=== PATIENT | female | born 1960 | race Caucasian/White ===

== ENCOUNTER 2017-03-25 06:56 | Inpatient (IN) | payer OTHER ==
[2017-02-28 12:00] VITALS: BMI 52.0
--- NOTE | 2017-02-28 12:23 | PAT Medication Instructions ---
Service Date Feb 28, 2017. Current Home Medication List Albuterol Hfa (Ventolin Hfa), 2-4 PUFFS INH Q6H PRN for Shortness of Breath Levothyroxine Sodium (Levothyroxine Sodium), 1 TAB PO QAM Medication Instructions For Your Scheduled Surgery - Take the following medications the morning of surgery with a sip of water: Albuterol Hfa (Ventolin Hfa), 2-4 PUFFS INH Q6H PRN for Shortness of Breath ( use if needed; bring with you to hospital morning of surgery) Levothyroxine Sodium (Levothyroxine Sodium), 1 TAB PO QAM - Take the following medications as scheduled the night before surgery: Albuterol Hfa (Ventolin Hfa), 2-4 PUFFS INH Q6H PRN for Shortness of Breath (if needed) If you have any questions please call us at [phone] or [phone] or [phone]
[2017-02-28 12:59] LABS: BASO % 0.5 %; BASO ABS # 0.03 K/uL (0-0.2); COMPLETE YES; EOS % 2.3 %; HEMATOCRIT 42.3 % (37-47); IG% 0.2 %; LYMPH % 27.9 %; MEAN CELL VOLUME 88.3 fL (80-100); MEAN CORPUSCULAR HGB CONC 32.9 g/dl (32-36); MEAN PLATELET VOLUME 10.6 fL (7.4-10.4); MONO % 6.1 %; PLATELET COUNT 238 K/uL (130-400); RED BLOOD COUNT 4.79 M/uL (4.2-5.4); WHITE BLOOD COUNT 5.74 K/uL (4.8-10.8)
--- NOTE | 2017-02-28 13:19 | DIAGNOSTIC IMAGING REPORT ---
CHEST 2 VIEWS ROUTINE CLINICAL HISTORY: pat preoperative evaluation COMPARISON STUDY: No previous studies for comparison. FINDINGS: The bones soft tissues and hemidiaphragms are normal. The cardiomediastinal silhouette is normal. The lungs are clear. The pulmonary vasculature is normal. Possible left millimeter nodular density left lower lobe. IMPRESSION: Possible nodular density measuring 11 mm left lower lobe. CT of chest is recommended as follow-up. Electronically signed by: Abbe Knight M.D. 02/28/2017 1:18 PM Dictated Date/Time: 02/28/2017 1:07 PM
[2017-02-28 13:20] LABS: ESTIMATED AVERAGE GLUCOSE 126 mg/dl; HA1C FLAG Normal (Normal)
[2017-02-28 13:23] LABS: URINE APPEARANCE CLEAR (CLEAR); URINE BILIRUBIN NEG (NEG); URINE COLOR YELLOW; URINE NITRITE NEG (NEG); URINE PH 6.5 (4.5-7.5); URINE SPECIFIC GRAVITY 1.013 (1.000-1.030); UROBILINOGEN NEG (NEG)
[2017-02-28 13:28] LABS: INR 0.9 (0.9-1.1); PARTIAL THROMBOPLASTIN RATIO 1.1; PROTHROMBIN TIME (PATIENT) 10.1 SECONDS (9.0-12.0)
[2017-02-28 13:29] LABS: MANUAL MICROSCOPIC REQUIRED? NO; REVIEW REQ? NO
[2017-02-28 14:19] LABS: BUN/CREATININE RATIO 24.7 (10-20); CREATININE 0.74 mg/dl (0.60-1.20); POTASSIUM 4.2 mmol/L (3.5-5.1)
--- NOTE | 2017-03-14 11:11 | History and Physical ---
History & Physical Date Mar 14, 2017. Chief Complaint Right knee Pain History of Present Illness The patient is a 56 year old female with complaints of right knee pain. She states there was no known injury. The symptoms occur constantly. She describes them as aching, discomforting and sharp. She has tried injections, ibuprofen and PT without any relief. She is scheduled for a Right Total knee Arthroplasty. Past Medical/Surgical History PMHx: Asthma, hypothyroidism, osteoarthritis, obesity Surgical Hx: Right knee arthroscopy, cholecystectomy, x2, hysterectomy , appendectomy, tonsillectomy. Additional History Hepatic Disease: No Endocrine Disorder: Yes (Hypothryoidism) Kidney Disease: No Hypertension: No Heart Disease: No Bleeding Tendencies: No Infectious Diseases: No Allergies Coded Allergies: Adhesives (Verified Allergy, Mild, RED AND SORE, 02/28/17) NO KNOWN DRUG ALLERGIES (Verified Allergy, Mild, ., 02/28/17) Home Medications Scheduled Levothyroxine Sodium (Levothyroxine Sodium), 1 TAB PO QAM Scheduled PRN Albuterol Hfa (Ventolin Hfa), 2-4 PUFFS INH Q6H PRN for Shortness of Breath Physical Examination Skin: warm/dry, no rash Eyes: EOMI ENT: normal ENT inspection Head: normocephalic, atraumatic Neck: supple, no adenopathy Respiratory/Chest: lungs clear, normal breath sounds Cardiovascular: regular rate, rhythm, no murmur Abdomen / GI: normal bowel sounds, non tender Extremities: + pertinent finding (Medial joint line tenderness. Decreased AROM. Ligaments are intact. ) Neurologic/Psych: no motor/sensory deficits, alert, oriented x 3 Diagnosis Primary osteoarthritis of Right knee Plan of Treatment Patient is scheduled for a Right total knee arthroplasty. She has failed conservative therapy that include NSAIDs, cortisone injections and PT. She states that it affects her ADLs. She would like to proceed with a Right TKA. Patient is scheduled for a Right TKA. Risks and benefits to surgery were discussed with the patient that include but not limit to infection, DVT, pain, stiffness, need for revision surgery, damage to blood vessels, damage to nerves , PE, and anesthesia risks were all discussed. The patient understands these risks and wishes to proceed. All questions were answered to her satisfaction. DVT prophylaxis will be Aspirin 81mg BID. She would like to go home with OPPT after her surgery.
[2017-03-25] VITALS (8 sets, daily range): BP systolic 119–135; BP diastolic 80–93; PULSE 57–79; TEMP 36.4–36.8; O2SAT 94–98; Ht 152.4 cm; Wt 121.0 kg
[~2017-03-25] VITALS: Ht 152.4 cm; Wt 121.0 kg
[~2017-03-25 06:56] MED LIST: ACETAMINOPHEN 500 MG TAB PO SCH; CEFAZOLIN 2000 MG/60 ML D5W 60 ML IV SCH; CEFAZOLIN 3000 MG/65 ML D5W 65 ML IV SCH; CeleBREX 200 MG CAP PO SCH; FAMOTIDINE 20 MG TAB PO SCH; GABAPENTIN 300 MG CAP PO SCH; LACTATED RINGER'S 1000ML IV SCH; LACTATED RINGER'S 500 ML IV SCH; LEVO150T9 PO; METOCLOPRAMIDE HCL 10 MG TAB PO SCH; ROPIVACAINE 5MG/ML 30 ML 150 MG, BUPIVACAINE/EPINEPHR 0.5% MPF 30 ML, KETOROLAC TROMETH... INFIL SCH; VNTHFA/IN INH
[2017-03-25] MEDS ORDERED: BUPIVACAINE 0.25% 30 ML VIAL ONE (07:47)
[2017-03-25] MEDS ORDERED: BUPIVACAINE 0.5 % 5 MG/1 ML PF 10ML VIAL ONE (07:47)
[2017-03-25] MEDS ORDERED: FENTANYL CITRATE INJ 50 MCG/1 ML 2 ML VIAL ONE (08:15)
[2017-03-25] MEDS ORDERED: LIDOCAINE HCL 2% 2 ML VIAL (20MG/ML) ONE (08:15)
[2017-03-25] MEDS ORDERED: PROPOFOL IV EMULSION 10 MG/ML 20 ML VIAL IV ONE (08:15)
[2017-03-25] MEDS ORDERED: MIDAZOLAM HCL 1 MG/ML 2ML VIAL ONE (08:15)
--- NOTE | 2017-03-25 08:37 | History & Physical Bridge Note ---
H&P Re-Evaluation Bridge Note: I have examined the patient, reviewed the History & Physical and in the interval since the performance of the History & Physical I have noted the following changes of clinical significance: No changes noted
[2017-03-25] MEDS ORDERED: NURSING VERBAL MED ORDER ONE (08:45)
[2017-03-25] MEDS ORDERED: ORTHO JOINT ANESTHETIC ONE (09:07)
[2017-03-25] MEDS ORDERED: POVIDONE-IODINE OP SOLN 30 ML BTL ONE (09:07)
[2017-03-25] MEDS ORDERED: BACITRACIN 50000 UNIT VIAL ONE (09:07)
[2017-03-25] MEDS: TRANEXAMIC ACID AMP 1,000 MG in NSS 100ML IV SCH ×2 (09:15→09:16)
[2017-03-25] MEDS ORDERED: KETOROLAC TROMETHAMINE 30 MG/ML VIAL IV. PRN (10:45)
[2017-03-25] MEDS ORDERED: ATROPINE SULFATE 0.1 MG/ML 5ML SYR IV PRN (10:45)
[2017-03-25] MEDS ORDERED: ONDANSETRON INJ 2 MG/ML 2 ML VIAL IV PRN ×2 (10:45→12:15)
[2017-03-25] MEDS ORDERED: EpHEDrine SULFATE INJ 50 MG/ML AMP IV PRN (10:45)
[2017-03-25] MEDS ORDERED: HYDROmorphone INJ 1 MG/ML SYR IV PRN (10:45)
[2017-03-25] MEDS ORDERED: PHENYLEPHRINE 100MCG/ML 5ML SYR IV PRN (10:45)
--- NOTE | 2017-03-25 12:14 | [facility] Post Operative Brief Note ---
Immediate Operative Summary Operative Date Mar 25, 2017. Pre-Operative Diagnosis Primary Osteoarthritis of Right Knee Post-Operative Diagnosis Primary Osteoarthritis of Right Knee Procedure(s) Performed Right Total Knee Arthroplasty, Cemented Surgeon Dr. Taylor Asset Management Analyst Surgeon(s) Kenia Teague PA-C Estimated Blood Loss 50 mL Findings above Specimens A: Right Knee Bone and Tissue Drains 2 hemovac Anesthesia spinal Complication(s) None Disposition Recovery Room / PACU
[2017-03-25] MEDS ORDERED: DiphenhydrAMINE HCL 50 MG/ML VIAL IV PRN (12:15)
[2017-03-25] MEDS ORDERED: METOCLOPRAMIDE HCL INJ 5 MG/ML 2 ML VIAL IV PRN (12:15)
[2017-03-25] MEDS ORDERED: MAGNESIUM HYDROXIDE SUSP 30 ML UDC PO PRN (12:15)
[2017-03-25] MEDS ORDERED: HYDROCODONE/ACETAMOPHEN 5/325MG TAB PO PRN (12:15)
[2017-03-25] MEDS ORDERED: MoRPHine SULFATE 2 MG/ML CARP IV PRN (12:15)
[2017-03-25] MEDS ORDERED: ZOLPIDEM TARTRATE 5 MG TAB PO PRN (12:15)
[2017-03-25] MEDS ORDERED: ALBUTEROL HFA 8 GM INHALER INH PRN (12:15)
--- NOTE | 2017-03-25 13:03 | DIAGNOSTIC IMAGING REPORT ---
RIGHT KNEE 1 OR 2 VIEWS ROUTINE CLINICAL HISTORY: Postoperative evaluation. COMPARISON: None FINDINGS: Alignment of the total right knee arthroplasty is anatomic. There is no periprosthetic fracture or unexpected radiopaque foreign body. Drains and skin amita are present. IMPRESSION: Expected findings following total right knee arthroplasty. Electronically signed by: Doug Lynne M.D. 03/25/2017 1:02 PM Dictated Date/Time: 03/25/2017 12:58 PM
--- NOTE | 2017-03-25 13:07 | Anesthesiology Progress Note ---
Anesthesia Post Op Note Date & Time Mar 25, 2017 at 13:07 Vital Signs Pain Intensity: 0 Vital Signs Past 12 Hours Date Time Temp Pulse Resp B/P (MAP) Pulse Ox O2 Delivery O2 Flow Rate FiO2 03/25/17 13:00 60 14 121/73 98 Nasal Cannula 2 03/25/17 12:50 63 16 116/70 97 Oxymask 5 03/25/17 12:40 74 18 108/65 97 Oxymask 5 03/25/17 12:34 36.2 74 16 109/56 97 Oxymask 10 03/25/17 07:30 36.8 79 20 135/93 98 Room Air Notes Mental Status: alert / awake / arousable, participated in evaluation Pt Amnestic to Procedure: Yes Nausea / Vomiting: adequately controlled Pain: adequately controlled Airway Patency, RR, SpO2: stable & adequate BP & HR: stable & adequate Hydration State: stable & adequate Anesthetic Complications: no major complications apparent
[2017-03-25] MEDS: D5W AND 1/2NSS + 20MEQ KCL 1,000 ML IV SCH (15:44)
[2017-03-25] MEDS: ACETAMINOPHEN 500 MG TAB PO SCH ×2 (15:44→21:38)
--- NOTE | 2017-03-25 16:03 | [facility] Operative Report ---
Operative Report Operative Date Mar 25, 2017. Pre-Operative Diagnosis Primary Osteoarthritis of Right Knee Post-Operative Diagnosis Primary Osteoarthritis of Right Knee Procedure(s) Performed Right Total Knee Arthroplasty, Cemented Surgeon Dr. Taylor Tip Stretcher Surgeon(s) Kenia Teague PA-C Estimated Blood Loss 50 mL Findings As above Specimens A: Right Knee Bone and Tissue Drains 2 hemovac Anesthesia spinal Disposition Recovery Room / PACU Indications 56-year-old female with [id number] osteoarthritis of the right knee. She has failed conservative measures including injection and anti-inflammatories. She wishes to proceed with a total knee arthroplasty. Description of Procedure Risks benefits and alternatives of surgery including but not limited to infection DVT pain stiffness need for surgery damage to blood vessels damage to nerves or risks of anesthesia were discussed with the patient and she wished to proceed. Patient was identified in the laterality was confirmed and marked. She received a preoperative antibiotic is also a spinal anesthetic and a abductor canal block. A well-padded tourniquet was applied and then the limb was prepped and draped in standard manner with ChloraPrep. The limb was exsanguinated and the tourniquet was inflated. I made a standard anterior incision. I sharply incised the skin then utilized Bovie electrocautery as well as the aqua mantis to achieve hemostasis. I made a medial parapatellar arthrotomy immobilized the patella laterally. I then excised the anterior horns of the medial and lateral meniscus as well as the infrapatellar fat pad. I elevated a portion of the MCL off of the tibia. I then pinned into place a patient-matched distal femoral cutting guide and made my distal femoral resection. I then pinned into place a size 5 5 in 1 cutting guide. I made my anterior, posterior and chamfer cuts. I then excised the cruciates and the remaining portions of the menisci. I then pinned into place a patient- matched tibial cutting guide and made my tibial resection. I then pinned into place a size 3 tibia utilizing alignment rods to confirm rotation. I then cut for the post. Utilizing a lamina employee service officer and then removed posterior osteophytes off the femur. I then placed a trial femur into position and cut for the trochlear component. She had significant soft tissue balancing. She significant valgus preoperative deformity. I released lateral structures including the iliotibial band and the popliteus tendon to try to appropriately rebalance the knee. She still had significant laxity on the medial side as compared to the lateral side. I was unsatisfied with her medial stability as she had been stretched in this region given her deformity with a standard polyethylene selected to place a constrained liner. This was a size 13 constrained liner. There was good soft tissue balancing and range of motion with this polyethylene. I then prepared the patella with a freehand cut utilizing sagittal saw. I sized and drilled for a size 29 patella. There was good tracking to the patella no lateral release was needed. All the trial components were removed. The deep tissues were anesthetized with and ortho mix solution. Then with Simplex HV with gent cement I cemented my definitive components. Definitive components, [employer] Journey 2: Femur 5 Tibia 3 Poly 13 constrained Patella 29 oval A deep drain was placed. The arthrotomy was closed with interrupted #1 Vicryl suture subcutaneous tissue was closed with interrupted 2-0 Vicryl suture and skin with amita. Sterile dressings applied and the tourniquet was released. All needle and sponge counts were correct at the end of the procedure patient was transferred to the PACU in stable condition without apparent complication. I attest to the content of the Intraoperative Record and any orders documented therein. Any exceptions are noted below. I attest to the content of the Intraoperative Record and any orders documented therein. Any exceptions are noted below.
[2017-03-25] MEDS: KETOROLAC TROMETHAMINE 30 MG/ML VIAL IV. SCH (17:40)
[2017-03-25] MEDS: CEFAZOLIN IV 3,000 MG in DEXTROSE 5% 50ML 50 ML IV SCH (17:41)
[2017-03-25] MEDS: FERROUS GLUCONATE 324 MG TAB PO SCH (17:41)
[2017-03-25] MEDS: TAPENTADOL ER 50 MG TABCR PO SCH (21:37)
[2017-03-25] MEDS: ASPIRIN 81 MG ECTAB PO SCH (21:37)
[2017-03-25] MEDS: DOCUSATE SODIUM 100 MG CAP PO SCH (21:38)
[2017-03-26] MEDS: D5W AND 1/2NSS + 20MEQ KCL 1,000 ML IV SCH ×2 (00:40→08:42)
[2017-03-26] MEDS: KETOROLAC TROMETHAMINE 30 MG/ML VIAL IV. SCH ×3 (00:41→12:03)
[2017-03-26] MEDS: CEFAZOLIN IV 3,000 MG in DEXTROSE 5% 50ML 50 ML IV SCH (02:13)
[2017-03-26 05:52] LABS: HEMATOCRIT 36.9 % (37-47); MEAN CELL VOLUME 87.6 fL (80-100); MEAN CORPUSCULAR HEMOGLOBIN 28.5 pg (25-34); MEAN CORPUSCULAR HGB CONC 32.5 g/dl (32-36); MEAN PLATELET VOLUME 10.2 fL (7.4-10.4); PLATELET COUNT 207 K/uL (130-400); RED BLOOD COUNT 4.21 M/uL (4.2-5.4); WHITE BLOOD COUNT 12.09 K/uL (4.8-10.8)
[2017-03-26] MEDS: LEVOTHYROXINE 150 MCG TAB PO SCH (06:01)
[2017-03-26 06:31] LABS: CALCIUM 8.2 mg/dl (8.5-10.1); CREATININE 0.74 mg/dl (0.60-1.20); POTASSIUM 4.3 mmol/L (3.5-5.1)
[2017-03-26 06:51] VITALS: BP 115/75; PULSE 64; TEMP 36.4; O2SAT 99
[2017-03-26] MEDS ORDERED: DEXAMETHASONE 4 MG TAB PO SCH (07:30)
--- NOTE | 2017-03-26 08:33 | Orthopedic Progress Note ---
Orthopedic Progress Note Date of Service Mar 26, 2017. Subjective Post OP Day: 1 Reports: feeling well, Denies: chest pain, SOB, nausea / vomiting, light headedness, calf pain Additional Notes: ITCHING/NAUSEA WITH NORCO. ALSO ALLERGIC TO OXYCODONE, SIMILAR REACTION. Objective calves soft nontender, N/V intact, dressing C/D/I, A&O x3, toes mobile, hemovac drainage (150/150cc per shift) Date Time Temp Pulse Resp B/P (MAP) Pulse Ox O2 Delivery O2 Flow Rate FiO2 03/26/17 06:51 36.4 64 17 115/75 (88) 99 Room Air 03/26/17 00:15 Room Air 03/25/17 23:07 36.6 67 17 130/83 (99) 94 Room Air 03/25/17 20:44 36.5 70 17 135/85 (102) 96 Room Air 03/25/17 16:49 36.4 57 17 130/84 (99) 97 Nasal Cannula 2.0 03/25/17 15:30 Nasal Cannula 2.0 03/25/17 15:28 59 14 128/83 (98) 98 Nasal Cannula 2.0 03/25/17 14:34 57 20 132/80 (97) 96 Nasal Cannula 2.0 03/25/17 14:25 Nasal Cannula 2.0 03/25/17 14:17 36.4 69 14 119/81 (94) 97 Nasal Cannula 2.0 03/25/17 14:16 97 Nasal Cannula 2.0 03/25/17 14:01 61 19 127/80 (96) 97 Nasal Cannula 2.0 03/25/17 13:15 57 16 131/76 98 Nasal Cannula 2 03/25/17 13:00 36.3 60 14 121/73 98 Nasal Cannula 2 03/25/17 12:50 63 16 116/70 97 Oxymask 5 03/25/17 12:40 74 18 108/65 97 Oxymask 5 03/25/17 12:34 36.2 74 16 109/56 97 Oxymask 10 Laboratory Results 24 Hours: Test 03/26/17 05:21 Hematocrit 36.9 % Hemoglobin 12.0 g/dL Assessment & Plan Assessment: POD#1 SP RIGHT TKA MORBID OBESITY Plan: GOING TO HOLD NORCO FOR NOW. MAY CONTINUE TYLENOL AND WILL ADD NUCYNTA. Patient seen and examined, agree with above. Inhouse Planning Pain Management: Celebrex, [place], PO Tylenol DVT Prophylaxis: TEDs, SCDs, ASA Discharge Planning Discharge Planning: home with oppt
[2017-03-26] MEDS: FERROUS GLUCONATE 324 MG TAB PO SCH ×3 (08:40→17:45)
[2017-03-26] MEDS: ASPIRIN 81 MG ECTAB PO SCH ×2 (08:41→20:30)
[2017-03-26] MEDS: DOCUSATE SODIUM 100 MG CAP PO SCH ×2 (08:41→20:30)
[2017-03-26] MEDS: MULTIVITAMIN TAB PO SCH (08:41)
[2017-03-26] MEDS: TAPENTADOL ER 50 MG TABCR PO SCH ×2 (08:41→20:34)
[2017-03-26] MEDS: PANTOprazole SOD 40 MG TAB PO SCH (08:41)
[2017-03-26] MEDS ORDERED: NURSING VERBAL MED ORDER ONE (11:00)
[2017-03-26 12:01] VITALS: BP 115/73; PULSE 64; O2SAT 98
[2017-03-26] MEDS: ALUMINUM/MAGNESIUM/SIMETH (MAALOX MAX) 30 ML UDC PO PRN ×2 (12:08→20:04)
[2017-03-26] MEDS: ACETAMINOPHEN 500 MG TAB PO SCH ×2 (14:59→20:31)
[2017-03-26 15:19] VITALS: BP 128/83; PULSE 73; TEMP 36.7; O2SAT 96
[2017-03-26] MEDS: TAPENTADOL HCL 50 MG TAB PO PRN (18:42)
[2017-03-26] MEDS: CeleBREX 200 MG CAP PO SCH (20:30)
[2017-03-26 23:19] VITALS: BP 114/74; PULSE 78; TEMP 36.5; O2SAT 98
[2017-03-27] VITALS: O2SAT 98
[2017-03-27] MEDS ORDERED: TAPENTADOL HCL 50 MG TAB PO SCH
[2017-03-27] MEDS ORDERED: TAPENTADOL ER 50 MG TABCR PO SCH
[2017-03-27] MEDS: TAPENTADOL HCL 50 MG TAB PO PRN ×2 (00:25→12:04)
[2017-03-27] MEDS: ACETAMINOPHEN 500 MG TAB PO SCH ×2 (05:38→13:24)
[2017-03-27] MEDS: LEVOTHYROXINE 150 MCG TAB PO SCH (05:38)
[2017-03-27 06:40] VITALS: BP 112/75; PULSE 69; TEMP 36.7; O2SAT 97
[2017-03-27] MEDS: ALUMINUM/MAGNESIUM/SIMETH (MAALOX MAX) 30 ML UDC PO PRN (06:42)
[2017-03-27] MEDS: FERROUS GLUCONATE 324 MG TAB PO SCH ×2 (07:28→12:06)
[2017-03-27] MEDS: DOCUSATE SODIUM 100 MG CAP PO SCH (07:28)
[2017-03-27] MEDS: PANTOprazole SOD 40 MG TAB PO SCH (07:28)
[2017-03-27] MEDS: TAPENTADOL ER 50 MG TABCR PO SCH (07:28)
[2017-03-27] MEDS: CeleBREX 200 MG CAP PO SCH (07:29)
[2017-03-27] MEDS: ASPIRIN 81 MG ECTAB PO SCH (07:29)
[2017-03-27] MEDS: MULTIVITAMIN TAB PO SCH (07:29)
--- NOTE | 2017-03-27 08:36 | Orthopedic Progress Note ---
Orthopedic Progress Note Date of Service Mar 27, 2017. Subjective Post OP Day: 2 Reports: feeling well, Denies: chest pain, SOB, nausea / vomiting, light headedness, calf pain Additional Notes: SEEMS BETTER TODAY. LESS PAIN, LESS NAUSEA. AMBULATING IN THE HALLWAY. Objective calves soft nontender, N/V intact, dressing C/D/I (PREVENA), A&O x3, toes mobile Date Time Temp Pulse Resp B/P (MAP) Pulse Ox O2 Delivery O2 Flow Rate FiO2 03/27/17 07:20 Room Air 03/27/17 06:40 36.7 69 16 112/75 (87) 97 Room Air 03/27/17 00:00 98 Room Air 03/26/17 23:19 36.5 78 16 114/74 (87) 98 Room Air 03/26/17 15:25 Room Air 03/26/17 15:19 36.7 73 17 128/83 (98) 96 Room Air 03/26/17 12:01 64 18 115/73 (87) 98 Room Air 03/26/17 08:59 Room Air Assessment & Plan Assessment: POD#2 SP RIGHT TKA MORBID OBESITY Inhouse Planning Pain Management: Celebrex, [place], PO Tylenol DVT Prophylaxis: TEDs, SCDs, ASA Discharge Planning Discharge Planning: home with oppt (DC HOME TODAY) Discharge Planning Notes: Patient seen and examined, agree with above
--- NOTE | 2017-03-27 08:37 | Discharge Instructions ---
Discharge Instructions Date of Service Mar 27, 2017. Admission Reason for Admission: Right Knee Osteoarthritis Discharge Discharge Diagnosis / Problem: SP RIGHT TKA Discharge Goals Goal(s): Decrease discomfort, Improve function, Increase independence Activity Recommendations Activity Limitations: per Instructions/Follow-up section . Instructions / Follow-Up Instructions / Follow-Up ACTIVITY RECOMMENDATIONS: SELF CARE INSTRUCTIONS AFTER TOTAL KNEE REPLACEMENT A. You may need to continue a physical therapy program after discharge from the hospital. There are several options available to you. Your doctor will assist you in selecting the best one for you. 1. An out-patient facility 2 to 3 times a week for therapy or home therapy. 2. Continue working on all exercises taught to you in the hospital. Your goals should be to increase bending of your knee to 90 degrees and beyond and to fully straighten your knee. B. You may progress at your own pace from walking with a walker or crutches to a cane; then to no assistive devices. C. Make walking a part of your daily routine. Be up as much as comfortable with rest periods throughout the day. Rest with leg elevation is very important. Use the ice wrap frequently for the first 3-4 weeks. D. There are no restrictions on activities. You may ride in a car, shop, participate in wild oyster harvester and all social activities. E. Wear the long elastic stockings (NEELIMA hose) 20 hours a day for 2 weeks after surgery. They can be removed several times a day for laundering and for a bath. F. You may shower, no tub baths until cleared by your doctor. SPECIAL CARE INSTRUCTIONS: VERY IMPORTANT TO READ AND REVIEW A. There are a few signs you need to watch for after you are home. Call [facility] if you notice any of the followin. Increased severe knee pain. Some pain is expected especially when you exercise. 2. Increased swelling in your leg or knee; pain or swelling of the calf muscle in either lower leg. 3. Any fluid drainage from the incision. 4. Shortness of breath or chest pain. B. Please call [facility] at if you have any concerns or questions about your operation or recovery. The doctor or his nurse will return your call promptly. C. You must take antibiotics before dental work, bladder, bowel or other surgery. Your doctor will provide you with a permanent care to carry describing this precaution. IMPORTANT: * REMEMBER TO TAKE ASPIRIN, 81 MG, TWICE DAILY FOR 4 WEEKS UNLESS OTHERWISE DIRECTED. THIS IS YOUR BLOOD THINNER. * HIGH RISK PATIENTS MAY BE PRESCRIBED A STRONGER BLOOD THINNER. THIS WILL BE PROVIDED AT DISCHARGE. * CALL IF INCREASED PAIN, REDNESS, DRAINAGE OR FEVER GREATER THAT 101. * WEAR NEELIMA HOSE 20 HOURS PER DAY FOR 2 WEEKS. Prevena- This is a large suction dressing covering your incision. This will help pull any excess drainage from the wound and allow your incision to heal properly. You may shower with this if you can keep the unit outside of the shower. If any bleeding or leakage is noted please call your doctor's office. This will remain on your incision for 7 days and then should be removed. This can be done yourself or by the home nursing staff if applicable. The entire unit is disposable once removed. Once removed, keep incision clean and dry. If redness or drainage is noted, please call your surgeon. FOLLOW UP VISIT: If appointment is not already scheduled: Please call [facility] to make a follow-up appointment for 2 weeks after your surgery at . Current Hospital Diet Patient's current hospital diet: Regular Diet Discharge Diet Recommended Diet: Regular Diet Procedures Procedures Performed: Right Total Knee Arthroplasty, Cemented Pending Studies Studies pending at discharge: no Laboratory Results Hemoglobin A1c Test 02/28/17 12:30 Range/Units Estimated Average Glucose 126 mg/dl Hemoglobin A1c 6.0 H 4.5-5.6 % Medical Emergencies . Who to Call and When: Medical Emergencies: If at any time you feel your situation is an emergency, please call 911 immediately. . Non-Emergent Contact Non-Emergency issues call your: Surgeon . "Provider Documentation" section prepared by Kenia Teague. . VTE Core Measure Inpt VTE Proph given/why not?: Other Anticoagulation, T.E.D. Stockings, SCD's
[2017-03-27] MEDS ORDERED: NCYSR50 PO (08:39)
[2017-03-27] MEDS ORDERED: NCY50 PO (08:39)
[2017-03-27] MEDS ORDERED: ACET-24 PO (08:39)
[2017-03-27] MEDS ORDERED: CLB200 PO (08:39)
[2017-03-27] MEDS ORDERED: ONDA8TAB6 PO (08:39)
[2017-03-27] MEDS ORDERED: ASPEC81 PO (08:39)
[2017-03-27 12:42] VITALS: BP 112/75; PULSE 69; TEMP 36.7; O2SAT 97
[2017-03-27] MEDS ORDERED: NURSING VERBAL MED ORDER ONE (13:30)
== END 2017-03-27 14:28 | disposition home or self-care (01) | DRG 470 ==
LOC: C.ACU 06:56 → C.3E 12:21 → ENRESERV 13:16
PROVIDERS: ADMIT Orthopaedic Surgery; ATTEND Orthopaedic Surgery
PROC: 0SRC0J9 Replacement of Right Knee Joint with Synthetic Substitute, Cemented, Open Approach (ICD-10-PCS; principal; 2017-03-25 10:00)
DX: M17.11 Unilateral primary osteoarthritis, right knee (principal); Z68.43 Body mass index [BMI] 50.0-59.9, adult; E03.9 Hypothyroidism, unspecified; E66.01 Morbid (severe) obesity due to excess calories; J45.909 Unspecified asthma, uncomplicated; Z79.899 Other long term (current) drug therapy

== ENCOUNTER 2017-06-24 06:31 | Inpatient (IN) | payer OTHER ==
[2017-06-06 11:27] VITALS: BMI 43.0
--- NOTE | 2017-06-06 12:05 | PAT Medication Instructions ---
Service Date Jun 06, 2017. Current Home Medication List Albuterol Hfa (Ventolin Hfa), 2-4 PUFFS INH Q6H PRN for Shortness of Breath Levothyroxine Sodium (Levothyroxine Sodium), 1 TAB PO QAM Medication Instructions For Your Scheduled Surgery - Take the following medications the morning of surgery with a sip of water: Albuterol Hfa (Ventolin Hfa), 2-4 PUFFS INH Q6H PRN for Shortness of Breath (if needed, and BRING WITH YOU THE MORNING OF THE SURGERY) Levothyroxine Sodium (Levothyroxine Sodium), 1 TAB PO QAM - Take the following medications as scheduled the night before surgery: Albuterol Hfa (Ventolin Hfa), 2-4 PUFFS INH Q6H PRN for Shortness of Breath (IF NEEDED) If you have any questions please call us at [phone] or [phone] or [phone]
[2017-06-06 13:20] LABS: BASO % 0.3 %; BASO ABS # 0.02 K/uL (0-0.2); COMPLETE YES; EOS % 2.2 %; LYMPH % 24.1 %; LYMPH ABS # 1.54 K/uL (1.2-3.4); MEAN CELL VOLUME 87.7 fL (80-100); MEAN CORPUSCULAR HEMOGLOBIN 28.6 pg (25-34); MEAN CORPUSCULAR HGB CONC 32.6 g/dl (32-36); MEAN PLATELET VOLUME 10.4 fL (7.4-10.4); NEUT % 65.4 %; PLATELET COUNT 240 K/uL (130-400); RED BLOOD COUNT 4.79 M/uL (4.2-5.4)
[2017-06-06 13:21] LABS: URINE APPEARANCE CLEAR (CLEAR); URINE BILIRUBIN NEG (NEG); URINE COLOR YELLOW; URINE EPITHELIAL CELL AUTO 20-30 /lpf (0-5); URINE NITRITE NEG (NEG); UROBILINOGEN NEG (NEG); ZZUR CULT IF INDIC CLEAN CATCH NO
[2017-06-06 13:23] LABS: ESTIMATED AVERAGE GLUCOSE 123 mg/dl; HA1C FLAG Normal (Normal)
[2017-06-06 13:31] LABS: BUN/CREATININE RATIO 25.4 (10-20); CALCIUM 9.6 mg/dl (8.5-10.1); CREATININE 0.7 mg/dl (0.60-1.20); MANUAL MICROSCOPIC REQUIRED? NO; POTASSIUM 3.8 mmol/L (3.5-5.1); REVIEW REQ? NO
[2017-06-06 13:39] LABS: INR 0.9 (0.9-1.1); PARTIAL THROMBOPLASTIN RATIO 1.1
--- NOTE | 2017-06-13 12:52 | History and Physical ---
History & Physical Date Jun 13, 2017. Chief Complaint Left knee pain History of Present Illness The patient is a 56 year old female with complaints of left knee pain. She has had pain that has come and go for some time but it is now constant. She has tried cortisone injections, NSAIDs, and PT with no relief. This affects her ADLs. She would like to proceed with a left total knee arthroplasty. Past Medical/Surgical History Medical Problems: (1) DJD (degenerative joint disease) (2) hypothyroidism (3) Obesity PSHx: Right knee arthroscopy, cholecystectomy, x2, hysterectomy, appendectomy, tonsillectomy, Right TKA Additional History Hepatic Disease: No Endocrine Disorder: Yes Kidney Disease: No Hypertension: No Heart Disease: No Bleeding Tendencies: No Infectious Diseases: No Allergies Coded Allergies: Adhesives (Verified Allergy, Mild, RED AND SORE, 03/25/17) Oxycodone (Verified Allergy, Mild, RASH ITCHING, 03/25/17) Latex1 -Allergic Contact Dermititis (Verified Allergy, Unknown, blisters, 06/06/17) Home Medications Scheduled Levothyroxine Sodium (Levothyroxine Sodium), 1 TAB PO QAM Scheduled PRN Albuterol Hfa (Ventolin Hfa), 2-4 PUFFS INH Q6H PRN for Shortness of Breath Physical Examination Skin: warm/dry, no rash Eyes: normal inspection, EOMI ENT: normal ENT inspection Head: normocephalic, atraumatic Neck: supple, no adenopathy Respiratory/Chest: lungs clear, normal breath sounds Cardiovascular: regular rate, rhythm, no murmur Abdomen / GI: normal bowel sounds, non tender Extremities: normal inspection, + pertinent finding (Medial joint line tenderness, decreased ROM, ligaments intact. ) Diagnosis Primary osteoarthritis of left knee Plan of Treatment Patient is scheduled for a Left total knee arthroplasty. She has tried cortisone injection, PT, and NSAIDs with no relief and would like to proceed with a left total knee arthroplasty. Risks and benefits to surgery were discussed that included but no limited to increased pain, infection, DVT, need for revision surgeries, failure to relieve all symptoms, damage to blood vessels , damage to nerves, PE, and anesthesia risks were all discussed. The patient understands these risks and wishes to proceed. All questions were answered to their satisfaction.
[~2017-06-24] VITALS: Ht 165.1 cm; Wt 119.7 kg
[2017-06-24] VITALS (10 sets, daily range): BP systolic 100–133; BP diastolic 68–96; PULSE 64–90; TEMP 36.3–36.9; O2SAT 95–100; Ht 165.1 cm; Wt 119.7 kg
[~2017-06-24 06:31] MED LIST changes: +BUPIVACAINE 0.25% 30 ML VIAL ONE; +BUPIVACAINE 0.5 % 5 MG/1 ML PF 10ML VIAL ONE; -CEFAZOLIN 3000 MG/65 ML D5W 65 ML IV SCH; +DEXAMETHASONE 4 MG TAB PO SCH; +LACTATED RINGER'S 1000ML 1,000 ML IV SCH; +LACTATED RINGER'S 1000ML 500 ML IV ONE; -LACTATED RINGER'S 1000ML IV SCH; -LACTATED RINGER'S 500 ML IV SCH
[2017-06-24] MEDS ORDERED: NURSING VERBAL MED ORDER STA (06:40)
[2017-06-24] MEDS ORDERED: ORTHO JOINT ANESTHETIC ONE (07:03)
[2017-06-24] MEDS ORDERED: BACITRACIN 50000 UNIT VIAL ONE (07:03)
[2017-06-24] MEDS ORDERED: POVIDONE-IODINE OP SOLN 30 ML BTL ONE (07:03)
[2017-06-24] MEDS ORDERED: MIDAZOLAM HCL 1 MG/ML 2ML VIAL ONE (07:03)
[2017-06-24] MEDS ORDERED: FENTANYL CITRATE INJ 50 MCG/1 ML 2 ML VIAL ONE (07:03)
[2017-06-24] MEDS ORDERED: ONDANSETRON INJ 2 MG/ML 2 ML VIAL IV PRN ×2 (07:30→11:00)
[2017-06-24] MEDS ORDERED: ATROPINE SULFATE 0.1 MG/ML 5ML SYR IV PRN (07:30)
[2017-06-24] MEDS ORDERED: FENTANYL CITRATE INJ 50 MCG/1 ML 2 ML VIAL IV PRN (07:30)
[2017-06-24] MEDS ORDERED: EpHEDrine SULFATE INJ 50 MG/ML AMP IV PRN (07:30)
[2017-06-24] MEDS: TRANEXAMIC ACID INJ 1,000 MG in SODIUM CHLORIDE 0.9% 100ML 100 ML TOP SCH ×2 (08:25→13:17)
[2017-06-24] MEDS ORDERED: PROPOFOL IV EMULSION 10 MG/ML 20 ML VIAL IV ONE ×2 (10:07)
[2017-06-24] MEDS ORDERED: ONDANSETRON INJ 2 MG/ML 2 ML VIAL ONE (10:07)
--- NOTE | 2017-06-24 10:24 | [facility] Operative Report ---
Operative Report Operative Date Jun 24, 2017. Pre-Operative Diagnosis Left Knee Osteoarthritis Post-Operative Diagnosis same Procedure(s) Performed Left Total Knee Arthroplasty Surgeon Dr. Taylor Peoplesoft Hcm Consultant Surgeon(s) Bentley Shay Pa-C Estimated Blood Loss 20 ML Findings As above Specimens a. left knee bone and tissue Drains 2 Hemovac Anesthesia spinal Complication(s) None Disposition Recovery Room / PACU Indications Aiiraizu-dkij-lwy female while same pain left knee. She is [id number] lateral compartment. She's fill conservative measures including anti- inflammatories and injection. She wishes to proceed with left total knee arthroplasty. Description of Procedure Risks benefits and alternatives of surgery including but not limited to infection, DVT, pain, stiffness, need for surgery, damage to blood vessels, damage to nerves or risks of anesthesia were discussed with the patient and they wished to proceed. The patient was identified and the laterality was confirmed and marked. They received a preoperative antibiotic as well as a spinal anesthetic and an abductor canal block. A well-padded tourniquet was applied and then the limb was prepped and draped in standard manner with ChloraPrep. The limb was exsanguinated and the tourniquet was inflated. I made a standard anterior incision. I sharply incised the skin then utilized Bovie electrocautery as well as the aqua mantis to achieve hemostasis. I made a medial parapatellar arthrotomy immobilized the patella laterally. I then excised the anterior horns of the medial and lateral meniscus as well as the infrapatellar fat pad. I elevated a portion of the MCL off of the tibia. I then pinned into place a patient-matched distal femoral cutting guide and made my distal femoral resection. I then pinned into place the 5 in 1 femoral cutting guide. I made my anterior, posterior and chamfer cuts. I then excised the cruciates and the remaining portions of the menisci. I then pinned into place a patient- matched tibial cutting guide and made my tibial resection. I then pinned into place the tibial plate a utilizing alignment carlotta to confirm rotation. I then cut for the post. Utilizing a lamina software technician and I then removed posterior osteophytes off the femur. I then placed a trial femur into position and cut for the trochlear component. I then sequentially trialed to size the polyethylene until there was good soft tissue balancing and range of motion. I then prepared the patella with a freehand cut utilizing sagittal saw. I sized and drilled for the patella. There was good tracking to the patella no lateral release was needed. All the trial components were removed. The deep tissues were anesthetized with an ortho mix solution. Then with Simplex HV with gentamicin cement, I cemented my definitive components. Definitive components, Muñoz and Nephew Babatunde 2: Femur 5 Tibia 3 Poly 13 Patella 29 oval A betadine soak was performed. A deep drain was placed. The arthrotomy was closed with interrupted #1 Vicryl suture subcutaneous tissue was closed with interrupted 2-0 Vicryl suture. The skin was closed with with amita. A Prevena wound VAC was placed. Sterile dressings were applied. All needle and sponge counts were correct at the end of the procedure patient was transferred to the PACU in stable condition without apparent complication. The PA-C was necessary for assistance with procedure for assistance in positioning, prepping, draping, retraction and closure. I attest to the content of the Intraoperative Record and any orders documented therein. Any exceptions are noted below.
[2017-06-24] MEDS ORDERED: BISACODYL 10 MG SUPP PR PRN (11:00)
[2017-06-24] MEDS ORDERED: MoRPHine SULFATE 2 MG/ML CARP IV PRN ×2 (11:00→13:00)
[2017-06-24] MEDS ORDERED: ALBUTEROL HFA 8 GM INHALER INH PRN (11:00)
[2017-06-24] MEDS ORDERED: MAGNESIUM HYDROXIDE SUSP 30 ML UDC PO PRN (11:00)
--- NOTE | 2017-06-24 11:08 | Anesthesiology Progress Note ---
Anesthesia Post Op Note Date & Time Jun 24, 2017 at 11:08 Vital Signs Pain Intensity: 0 Vital Signs Past 12 Hours Date Time Temp Pulse Resp B/P (MAP) Pulse Ox O2 Delivery O2 Flow Rate FiO2 06/24/17 11:05 69 18 109/68 99 Nasal Cannula 2 06/24/17 10:55 75 16 104/58 100 Oxymask 8 06/24/17 10:46 36.7 74 16 94/57 95 Oxymask 8 06/24/17 06:54 36.6 90 18 133/96 98 Room Air Notes Mental Status: alert / awake / arousable, participated in evaluation Pt Amnestic to Procedure: Yes Nausea / Vomiting: adequately controlled Pain: adequately controlled Airway Patency, RR, SpO2: stable & adequate BP & HR: stable & adequate Hydration State: stable & adequate Neuraxial Anesthesia: was administered, sensory block is resolving Anesthetic Complications: no major complications apparent
--- NOTE | 2017-06-24 11:18 | DIAGNOSTIC IMAGING REPORT ---
LEFT KNEE 2 VIEWS History: Left total knee arthroplasty. Degenerative arthritis. Postop. FINDINGS: The patient is status post a left total knee arthroplasty. The hardware is intact. No fracture or dislocation. Skin amita and surgical drains are in place. IMPRESSION: Left total knee arthroplasty. No evidence for hardware complication. Electronically signed by: Brody Fuller M.D. 06/24/2017 11:17 AM Dictated Date/Time: 06/24/2017 11:16 AM
[2017-06-24] MEDS ORDERED: MoRPHine SULFATE 4 MG/ML 1 ML CARP\\VIAL IV PRN (13:00)
[2017-06-24] MEDS ORDERED: MoRPHine SULFATE 10 MG/ML CARP/VIAL IV PRN (13:00)
[2017-06-24] MEDS: KETOROLAC TROMETHAMINE 30 MG/ML VIAL IV. SCH ×3 (13:17→23:34)
[2017-06-24] MEDS: D5W AND 1/2NSS + 20MEQ KCL 1,000 ML IV SCH ×2 (13:17→23:33)
[2017-06-24] MEDS: CEFAZOLIN IV 2,000 MG in DEXTROSE 5% 50ML 50 ML IV SCH ×2 (16:02→23:34)
[2017-06-24] MEDS: TRAMADOL HCL 50 MG TAB PO PRN (18:15)
[2017-06-24] MEDS: FERROUS GLUCONATE 324 MG TAB PO SCH (18:16)
[2017-06-24] MEDS: HYDROCODONE/ACETAMOPHEN 5/325MG TAB PO PRN (20:47)
[2017-06-24] MEDS: ALUMINUM/MAGNESIUM/SIMETH (MAALOX MAX) 30 ML UDC PO PRN (20:47)
[2017-06-24] MEDS: SENNA 8.6 MG TAB PO SCH (20:51)
[2017-06-24] MEDS: DOCUSATE SODIUM 100 MG CAP PO SCH (20:51)
[2017-06-24] MEDS: ASPIRIN 81 MG ECTAB PO SCH (20:51)
[2017-06-25] VITALS (8 sets, daily range): BP systolic 94–127; BP diastolic 67–77; PULSE 69–86; TEMP 36.4–36.6; O2SAT 96–99
[2017-06-25] MEDS: ALUMINUM/MAGNESIUM/SIMETH (MAALOX MAX) 30 ML UDC PO PRN ×3 (00:31→19:36)
[2017-06-25] MEDS: HYDROCODONE/ACETAMOPHEN 5/325MG TAB PO PRN ×3 (00:36→19:14)
--- NOTE | 2017-06-25 06:09 | Orthopedic Progress Note ---
Orthopedic Progress Note Date of Service Jun 25, 2017. Subjective Post OP Day: 1 (Left TKA) Reports: feeling well, nausea / vomiting, pain controlled w PO medications, Denies: complaints, chest pain, SOB, light headedness, calf pain Additional Notes: states unable to lift her left foot up, but is slowly improving. Objective calves soft nontender, N/V intact, capillary refill less than 2 sec., dressing C /D/I, A&O x3, toes mobile, hemovac drainage (150cc/8 hours) good plantar flexion strength, weakness noted with dorsiflexion but is able to dorsiflex 1-2 inches. sensation intact Date Time Temp Pulse Resp B/P (MAP) Pulse Ox O2 Delivery O2 Flow Rate FiO2 06/25/17 04:03 36.5 69 16 102/67 (79) 96 Room Air 06/24/17 23:30 Room Air 06/24/17 22:47 36.6 78 16 100/68 (79) 95 Room Air 06/24/17 21:37 97 Room Air 06/24/17 19:13 36.9 83 18 119/76 (90) 98 Nasal Cannula 2.0 06/24/17 15:50 99 Nasal Cannula 2.0 06/24/17 14:49 36.3 72 16 110/70 (83) 99 2.0 06/24/17 14:09 74 16 125/82 (96) 98 2.0 06/24/17 12:54 72 16 122/82 (95) 100 4.0 06/24/17 12:22 65 16 114/75 (88) 100 2.0 06/24/17 11:50 99 Nasal Cannula 2.0 06/24/17 11:50 36.4 64 18 118/81 (93) 99 Nasal Cannula 2.0 06/24/17 11:50 99 Nasal Cannula 2.0 06/24/17 11:35 67 18 113/65 97 Nasal Cannula 2 06/24/17 11:25 65 17 115/66 99 Nasal Cannula 2 06/24/17 11:15 36.0 67 14 122/76 98 Nasal Cannula 2 06/24/17 11:05 69 18 109/68 99 Nasal Cannula 2 06/24/17 10:55 75 16 104/58 100 Oxymask 8 06/24/17 10:46 36.7 74 16 94/57 95 Oxymask 8 06/24/17 06:54 36.6 90 18 133/96 98 Room Air Laboratory Results 24 Hours: Test 06/25/17 05:53 Assessment & Plan Assessment: POD #1 s/p Left TKA -pt/ot -dvt proph with demario/scd/asa -did OPPT after her Right TKA, would like to do the same this time Post op Foot drop- states she feels it is slowly getting stronger, likely from intra op ortho mix injection, will cont to observe Post op Nausea- states she had this last time and thinks she did better with Phenergan, will switch from Zofran Hypothyroidism. Discharge Planning Discharge Planning: home with oppt DVT Prophylaxis: TEDs, SCDs, ASA
[2017-06-25] MEDS ORDERED: PROMETHAZINE HCL INJ 25 MG in SODIUM CHLORIDE 0.9% 50ML 50 ML IV PRN (06:15)
[2017-06-25 06:21] LABS: HEMATOCRIT 33.2 % (37-47); MEAN CELL VOLUME 85.3 fL (80-100); MEAN CORPUSCULAR HEMOGLOBIN 27.5 pg (25-34); MEAN CORPUSCULAR HGB CONC 32.2 g/dl (32-36); PLATELET COUNT 205 K/uL (130-400); RED BLOOD COUNT 3.89 M/uL (4.2-5.4); WHITE BLOOD COUNT 14.63 K/uL (4.8-10.8)
[2017-06-25] MEDS: LEVOTHYROXINE 150 MCG TAB PO SCH (06:24)
[2017-06-25] MEDS: KETOROLAC TROMETHAMINE 30 MG/ML VIAL IV. SCH (06:25)
[2017-06-25 06:51] LABS: BUN/CREATININE RATIO 23.4 (10-20); CALCIUM 8.1 mg/dl (8.5-10.1); CREATININE 0.68 mg/dl (0.60-1.20); POTASSIUM 4.3 mmol/L (3.5-5.1)
[2017-06-25] MEDS: FERROUS GLUCONATE 324 MG TAB PO SCH ×3 (08:30→17:40)
[2017-06-25] MEDS: ASPIRIN 81 MG ECTAB PO SCH ×2 (08:52→21:42)
[2017-06-25] MEDS: D5W AND 1/2NSS + 20MEQ KCL 1,000 ML IV SCH (08:52)
[2017-06-25] MEDS: MULTIVITAMIN TAB PO SCH (08:52)
[2017-06-25] MEDS: DOCUSATE SODIUM 100 MG CAP PO SCH ×2 (08:52→21:42)
[2017-06-25] MEDS: PANTOprazole SOD 40 MG TAB PO SCH (08:52)
--- NOTE | 2017-06-25 13:13 | Discharge Instructions ---
Discharge Instructions Date of Service Jun 25, 2017. Admission Reason for Admission: Left Knee Osteoarthritis Discharge Discharge Diagnosis / Problem: left total knee replacement Discharge Goals Goal(s): Decrease discomfort, Improve function, Increase independence Activity Recommendations Activity Limitations: as noted below Weightbearing Status: Left weightbearing (as tolerated) . Instructions / Follow-Up Instructions / Follow-Up ACTIVITY RECOMMENDATIONS: SELF CARE INSTRUCTIONS AFTER TOTAL KNEE REPLACEMENT A. You may need to continue a physical therapy program after discharge from the hospital. There are several options available to you. Your doctor will assist you in selecting the best one for you. 1. An out-patient facility 2 to 3 times a week for therapy or home therapy. 2. Continue working on all exercises taught to you in the hospital. Your goals should be to increase bending of your knee to 90 degrees and beyond and to fully straighten your knee. B. You may progress at your own pace from walking with a walker or crutches to a cane; then to no assistive devices. C. Make walking a part of your daily routine. Be up as much as comfortable with rest periods throughout the day. Rest with leg elevation is very important. Use the ice wrap frequently for the first 3-4 weeks. D. There are no restrictions on activities. You may ride in a car, shop, participate in care connector and all social activities. E. Wear the long elastic stockings (NEELIMA hose) 20 hours a day for 2 weeks after surgery. They can be removed several times a day for laundering and for a bath. F. You may shower, no tub baths until cleared by your doctor. SPECIAL CARE INSTRUCTIONS: VERY IMPORTANT TO READ AND REVIEW A. There are a few signs you need to watch for after you are home. Call [facility] if you notice any of the followin. Increased severe knee pain. Some pain is expected especially when you exercise. 2. Increased swelling in your leg or knee; pain or swelling of the calf muscle in either lower leg. 3. Any fluid drainage from the incision. 4. Shortness of breath or chest pain. B. Please call [facility] at if you have any concerns or questions about your operation or recovery. The doctor or his nurse will return your call promptly. C. You must take antibiotics before dental work, bladder, bowel or other surgery. Your doctor will provide you with a permanent care to carry describing this precaution. IMPORTANT: * REMEMBER TO TAKE ASPIRIN, 81 MG, TWICE DAILY FOR 4 WEEKS UNLESS OTHERWISE DIRECTED. THIS IS YOUR BLOOD THINNER. * HIGH RISK PATIENTS MAY BE PRESCRIBED A STRONGER BLOOD THINNER. THIS WILL BE PROVIDED AT DISCHARGE. * CALL IF INCREASED PAIN, REDNESS, DRAINAGE OR FEVER GREATER THAT 101. * WEAR NEELIMA HOSE 20 HOURS PER DAY FOR 2 WEEKS. * YOU MAY HAVE A LARGE BAND-AID LIKE DRESSING (SILVERON). THIS WILL REMAIN ON YOUR INCISION FOR 7 DAYS, THEN CAN BE REMOVED. IF INCISION IS LEAKING THROUGH DRESSING, CALL THE OFFICE . * YOU may have a Prevena wound vac, This is a large suction dressing covering your incision. This will help pull any excess drainage from the wound and allow your incision to heal properly. You may shower with this if you can keep the unit outside of the shower. If any bleeding or leakage is noted please call your doctor's office. This will remain on your incision for 7 days and then should be removed. This can be done yourself or by the home nursing staff if applicable. The entire unit is disposable once removed. Once removed, keep incision clean and dry. If redness or drainage is noted, please call your surgeon. FOLLOW UP VISIT: If appointment is not already scheduled: Please call [facility] to make a follow-up appointment for 2 weeks after your surgery at . Current Hospital Diet Patient's current hospital diet: Regular Diet Discharge Diet Recommended Diet: Regular Diet Procedures Procedures Performed: Left Total Knee Arthroplasty Pending Studies Studies pending at discharge: no Laboratory Results Hemoglobin A1c Test 06/06/17 12:24 Range/Units Estimated Average Glucose 123 mg/dl Hemoglobin A1c 5.9 H 4.5-5.6 % Medical Emergencies . Who to Call and When: Medical Emergencies: If at any time you feel your situation is an emergency, please call 911 immediately. . Non-Emergent Contact Non-Emergency issues call your: Primary Care Provider, Surgeon . "Provider Documentation" section prepared by Abbe Hammond. . VTE Core Measure Inpt VTE Proph given/why not?: Other Anticoagulation (ASA 81mg po bid x 1 month ), T.E.D. Stockings, SCD's [place] Drug Monitoring Program Search Results: patient reviewed within database, no issues identified
[2017-06-25] MEDS: TRAMADOL HCL 50 MG TAB PO PRN ×2 (15:42→21:40)
[2017-06-25] MEDS: CeleBREX 200 MG CAP PO SCH (21:41)
[2017-06-25] MEDS: SENNA 8.6 MG TAB PO SCH (21:42)
[2017-06-26] MEDS: HYDROCODONE/ACETAMOPHEN 5/325MG TAB PO PRN ×2 (00:18→09:03)
[2017-06-26] MEDS: ALUMINUM/MAGNESIUM/SIMETH (MAALOX MAX) 30 ML UDC PO PRN (00:47)
[2017-06-26] MEDS: TRAMADOL HCL 50 MG TAB PO PRN (04:19)
[2017-06-26] MEDS: LEVOTHYROXINE 150 MCG TAB PO SCH (05:51)
--- NOTE | 2017-06-26 06:05 | Orthopedic Progress Note ---
Orthopedic Progress Note Date of Service Jun 26, 2017. Subjective Post OP Day: 2 Reports: feeling well, pain controlled w PO medications, Denies: complaints, chest pain, SOB, nausea / vomiting, light headedness, calf pain Additional Notes: foot drop resolved Objective calves soft nontender, N/V intact, capillary refill less than 2 sec., dressing C /D/I (prevena), A&O x3, toes mobile Date Time Temp Pulse Resp B/P (MAP) Pulse Ox O2 Delivery O2 Flow Rate FiO2 06/26/17 00:30 Room Air 06/25/17 22:46 36.5 74 16 107/72 (84) 97 Room Air 06/25/17 19:32 36.6 86 18 127/77 (94) 97 Room Air 06/25/17 15:30 99 Room Air 06/25/17 15:04 36.5 74 16 114/75 (88) 99 Room Air 06/25/17 11:30 69 99 06/25/17 11:29 36.4 69 16 94/68 (77) 97 Room Air 06/25/17 07:35 Room Air 06/25/17 07:04 36.4 71 16 106/68 (81) 97 Room Air Assessment & Plan Assessment: POD #2 s/p Left TKA -pt/ot -dvt proph with demario/scd/asa -did OPPT after her Right TKA, would like to do the same this time plan to d/c after PT today Post op Foot drop- has resolved, likely due to ortho mix Post op Nausea- improved Hypothyroidism. Discharge Planning Discharge Planning: home with oppt DVT Prophylaxis: TEDs, SCDs, ASA
[2017-06-26] MEDS ORDERED: CLC100 PO (06:09)
[2017-06-26] MEDS ORDERED: HYDR-5688 PO (06:09)
[2017-06-26] MEDS ORDERED: ULT50X PO (06:09)
[2017-06-26] MEDS ORDERED: CLB200 PO (06:09)
[2017-06-26] MEDS ORDERED: ASPEC81 PO (06:09)
[2017-06-26] MEDS ORDERED: ONDA8TAB6 PO (06:09)
[2017-06-26 07:28] VITALS: BP 107/72; PULSE 74; TEMP 36.5; O2SAT 97
[2017-06-26 08:05] VITALS: BP 114/77; PULSE 80; TEMP 36.6; O2SAT 95
[2017-06-26] MEDS: DOCUSATE SODIUM 100 MG CAP PO SCH (09:02)
[2017-06-26] MEDS: MULTIVITAMIN TAB PO SCH (09:02)
[2017-06-26] MEDS: ASPIRIN 81 MG ECTAB PO SCH (09:02)
[2017-06-26] MEDS: PANTOprazole SOD 40 MG TAB PO SCH (09:02)
[2017-06-26] MEDS: CeleBREX 200 MG CAP PO SCH (09:02)
[2017-06-26] MEDS: FERROUS GLUCONATE 324 MG TAB PO SCH (09:02)
[2017-06-26 09:48] VITALS: BP 139/77; PULSE 79; O2SAT 99
--- NOTE | 2017-06-28 20:59 | DISCHARGE SUMMARY ---
DISCHARGE DIAGNOSIS: Degenerative joint disease, left knee. SECONDARY DIAGNOSES: Hypothyroidism, obesity. CONSULTS: None. COMPLICATIONS: None. PROCEDURES: Left total knee arthroplasty performed by Dr. Taylor on 06/24/2017. BRIEF HISTORY: As dictated in history and physical. HOSPITAL SUMMARY: The patient was admitted on the above-noted date and had the above-noted surgery performed which she tolerated well. On her first postoperative day, she was having some nausea and vomiting, but pain was controlled. She was also having trouble dorsiflexing the foot but was slowly improving. Calves were soft and nontender. Capillary refill was less than 2 seconds. Dressings were clean, dry and intact. Toes were mobile. She had good plantar flexion strength. Weakness noted with dorsiflexion but is able to dorsiflex 1-2 inches and sensation was intact. Vital signs were stable. She is afebrile. She was started on physical therapy protocol and continued on DVT prophylaxis and pain management. Her mild footdrop was likely due to intraoperative injection, and plans were to watch for now. She was given antiemetics for her nausea and was continued on her protocol. By her second postoperative day, she was feeling well and pain was controlled. Her foot drop had resolved. She no longer had any nausea. Calves were soft and nontender, neurovascularly intact. Dressings clean, dry and intact. Toes were mobile. Vital signs were stable. She was afebrile. She was progressing with her physical therapy and remaining stable and it was felt that she could be discharged to home. For further review, please see chart. LAB AND X-RAY DATA: As per chart. DISCHARGE INSTRUCTIONS: The patient was discharged to home in satisfactory condition on 06/26/2017. DIET: Regular. ACTIVITY: Weightbearing as tolerated, left lower extremity. Follow TK instruction sheets and special care instructions as noted. Follow up with Dr. Taylor in 2 weeks. The patient to call for appointment if one has not been made for you. DISCHARGE MEDICATIONS: Aspirin 81 mg p.o. b.i.d., Celebrex 200 mg p.o. b.i.d. for 30 days, docusate sodium 100 mg p.o. b.i.d. for 10 days, [place] 5/325 1-2 tabs p.o. q. 4 hours p.r.n., Zofran 8 mg p.o. q. 8 hours p.r.n. nausea, tramadol 50-100 mg p.o. q. 4 hours p.r.n. Resume home meds including albuterol 2-4 puffs inhaled q. 6 hours p.r.n., levothyroxine 150 mcg p.o. q.a.m.
== END 2017-06-26 10:06 | disposition home health service (06) | DRG 470 ==
LOC: C.ACU 06:31 → C.3E 06:53 → ENRESERV 11:34
PROVIDERS: ADMIT Orthopaedic Surgery; ATTEND Orthopaedic Surgery
PROC: 0SRD0JZ Replacement of Left Knee Joint with Synthetic Substitute, Open Approach (ICD-10-PCS; principal; 2017-06-24 08:45)
DX: M17.12 Unilateral primary osteoarthritis, left knee (principal); E03.9 Hypothyroidism, unspecified; E66.9 Obesity, unspecified; Z96.651 Presence of right artificial knee joint; R11.0 Nausea; Z90.49 Acquired absence of other specified parts of digestive tract; Z90.710 Acquired absence of both cervix and uterus

== ENCOUNTER 2017-12-19 20:10 | Emergency (ER) | payer OTHER ==
[~2017-12-19] VITALS: Ht 165.1 cm; Wt 120.6 kg
[~2017-12-19 20:10] MED LIST changes: -ACETAMINOPHEN 500 MG TAB PO SCH; +ASPEC81 PO; -BUPIVACAINE 0.25% 30 ML VIAL ONE; -BUPIVACAINE 0.5 % 5 MG/1 ML PF 10ML VIAL ONE; -CEFAZOLIN 2000 MG/60 ML D5W 60 ML IV SCH; +CLB200 PO; +CLC100 PO; -CeleBREX 200 MG CAP PO SCH; -DEXAMETHASONE 4 MG TAB PO SCH; -FAMOTIDINE 20 MG TAB PO SCH; -GABAPENTIN 300 MG CAP PO SCH; +HYDR-5688 PO; -LACTATED RINGER'S 1000ML 1,000 ML IV SCH; -LACTATED RINGER'S 1000ML 500 ML IV ONE; -METOCLOPRAMIDE HCL 10 MG TAB PO SCH; +ONDA-170 PO; -ROPIVACAINE 5MG/ML 30 ML 150 MG, BUPIVACAINE/EPINEPHR 0.5% MPF 30 ML, KETOROLAC TROMETH... INFIL SCH; +ULT50X PO
[2017-12-19 20:27] VITALS: TEMP 37; Ht 165.1 cm; Wt 120.6 kg
[2017-12-19 20:40] LABS: BASO % 0.2 %; BASO ABS # 0.02 K/uL (0-0.2); EOS % 0.6 %; EOS ABS # 0.06 K/uL (0-0.5); HEMATOCRIT 40.1 % (37-47); HEMOGLOBIN 13.5 g/dL (12.0-16.0); IG# 0.03 K/uL (0.00-0.02); LYMPH % 3.6 %; LYMPH ABS # 0.38 K/uL (1.2-3.4); MEAN CELL VOLUME 84.8 fL (80-100); MEAN CORPUSCULAR HEMOGLOBIN 28.5 pg (25-34); MEAN CORPUSCULAR HGB CONC 33.7 g/dl (32-36); MEAN PLATELET VOLUME 9.5 fL (7.4-10.4); MONO % 8.7 %; MONO ABS # 0.91 K/uL (0.11-0.59); NEUT % 86.6 %; NEUT ABS # 9.08 K/uL (1.4-6.5); PLATELET COUNT 206 K/uL (130-400); RED CELL DISTRIBUTION WIDTH CV 15.1 % (11.5-14.5); RED CELL DISTRIBUTION WIDTH SD 46.9 fL (36.4-46.3); WHITE BLOOD COUNT 10.48 K/uL (4.8-10.8)
[2017-12-19 20:57] LABS: ALBUMIN 3.7 gm/dl (3.4-5.0); CALCIUM 9.2 mg/dl (8.5-10.1); CREATININE 0.93 mg/dl (0.60-1.20); POTASSIUM 4.7 mmol/L (3.5-5.1)
[2017-12-19 21:00] LABS: TOTAL PROTEIN 7.3 gm/dl (6.4-8.2)
--- NOTE | 2017-12-19 22:25 | EMERGENCY ROOM VISIT NOTE ---
History Report prepared by Sabrina: Benjamin Cano Under the Supervision of: Dr. Earl Hemphill M.D. First contact with patient: 22:17 Chief Complaint: ABDOMINAL PAIN Stated Complaint: STOMACH PAIN Nursing Triage Summary: per PT "I ate some nuts and my diverticulitis is acting up now" PT has pain started today. Patient states that she has hx of diverticulitis. History of Present Illness "I ate some nuts and my diverticulitis is acting up now" The patient is a 57 year old female who presents to the Emergency Room with complaints of constant, severe, abdominal pain beginning last evening. The patient states she has a history of diverticulitis for the past 10 years. She reports she ate nuts yesterday, and she should not have. The patient notes her pain feels very similar to her previous diverticulitis episodes. She reports mild nausea. The patient reports she has a history of a cholecystectomy, appendectomy, and hysterectomy. She denies blood in her urine, blood in her stools, fevers, the chance of being , vaginal bleeding, vaginal discharge, and vomiting. Source of History: patient Onset: last evening Position: abdomen Symptom Intensity: severe Timing: constant Associated Symptoms: + chills, + nausea, No fevers, No vomiting Note: Associated symptoms: pain with urination Denies: vaginal discharge, vaginal bleeding, blood in her stools, blood in her urine Review of Systems See HPI for pertinent positives and negatives. A total of ten systems were reviewed and were otherwise negative. Past Medical & Surgical Medical Problems: (1) DJD (degenerative joint disease) (2) Left knee DJD Family History Diabetes mellitus Social History Smoking Status: Never Smoker Marital Status: Housing Status: lives with significant other Occupation Status: unemployed Current/Historical Medications Scheduled Ciprofloxacin Hcl (Cipro), 500 MG PO BID Levothyroxine Sodium (Levothyroxine Sodium), 1 TAB PO QAM Metronidazole (Flagyl), 500 MG PO TID Polyethylene Glycol 3350 (Miralax), 17 GM PO today Scheduled PRN Albuterol Hfa (Ventolin Hfa), 2-4 PUFFS INH Q6H PRN for Shortness of Breath Ondansetron Hcl (Zofran), 8 MG PO Q8 PRN for Nausea Allergies Coded Allergies: Adhesives (Verified Allergy, Mild, RED AND SORE, 03/25/17) Oxycodone (Verified Allergy, Mild, RASH ITCHING, 03/25/17) Latex1 -Allergic Contact Dermititis (Verified Allergy, Unknown, blisters, 06/24/17) Physical Exam Vital Signs Date Time Temp Pulse Resp B/P (MAP) Pulse Ox O2 Delivery O2 Flow Rate FiO2 12/19/17 22:57 102 18 126/101 96 12/19/17 20:27 37.0 105 20 167/107 97 Room Air Physical Exam Physical Exam GENERAL: She is oriented to person, place, and time. She appears well- developed and well-nourished. She does not appear distressed. ____ HENT: Exam performed. Head: Normocephalic and atraumatic. Right Ear: External ear normal. No mastoid tenderness. Left Ear: External ear normal. No mastoid tenderness. Mouth/Throat: The oropharynx is clear and moist. No trismus in the jaw. No dental abscesses or uvula swelling. No oropharyngeal exudate or tonsillar abscesses. ____ EYES: Conjunctivae and EOM are normal. Pupils are equal, round, and reactive to light. Right eye exhibits no discharge. Left eye exhibits no discharge. No scleral icterus. ____ NECK: Normal range of motion. Neck supple. No JVD present. No spinous process tenderness present. No carotid bruit present. No rigidity. No tracheal deviation and normal range of motion present. No Brudzinski's sign and no Kernig 's sign noted. ____ CV: Normal rate, regular rhythm, normal heart sounds and intact distal pulses. There is no peripheral edema. Palpable radial pulses bue. ____ PULM/CHEST: Effort normal and breath sounds normal. No respiratory distress. No stridor. She has no wheezes. She has no rales. Chest Wall: She exhibits no tenderness. ____ ABD: The abdomen is soft. Bowel sounds are normal. She has no distension. No mass is present. There is tenderness in the LLQ. There is no rebound, no guarding, no Swartz's sign and no tenderness at McBurney's point. Rovsig negative MUSC/SKEL: Normal range of motion. There is no peripheral edema, tenderness or deformity. LYMPH: No cervical adenopathy. ____ NEURO: She is alert and oriented to person, place, and time. She has normal strength. No cranial nerve deficit or sensory deficit. Coordination and gait normal. GCS eye subscore is 4. GCS verbal subscore is 5. GCS motor subscore is 6. Cerebellar tests wnl. ____ SKIN: Skin is warm and dry. She is not diaphoretic. ____ PSYCH: She has a normal mood and affect. Her behavior is normal. Judgment and thought content normal. ____ Medical Decision & Procedures Laboratory Results 12/19/17 20:30 Red Blood Count 4.73, Mean Corpuscular Volume 84.8, Mean Corpuscular Hemoglobin 28.5, Mean Corpuscular Hemoglobin Concent 33.7, Mean Platelet Volume 9.5, Neutrophils (%) (Auto) 86.6, Lymphocytes (%) (Auto) 3.6, Monocytes (%) (Auto) 8.7, Eosinophils (%) (Auto) 0.6, Basophils (%) (Auto) 0.2, Neutrophils # (Auto) 9.08, Lymphocytes # (Auto) 0.38, Monocytes # (Auto) 0.91, Eosinophils # (Auto) 0.06, Basophils # (Auto) 0.02 12/19/17 20:30 Test 12/19/17 20:30 White Blood Count 10.48 K/uL (4.8-10.8) Red Blood Count 4.73 M/uL (4.2-5.4) Hemoglobin 13.5 g/dL (12.0-16.0) Hematocrit 40.1 % (37-47) Mean Corpuscular Volume 84.8 fL (80-100) Mean Corpuscular Hemoglobin 28.5 pg (25-34) Mean Corpuscular Hemoglobin Concent 33.7 g/dl (32-36) Platelet Count 206 K/uL (130-400) Mean Platelet Volume 9.5 fL (7.4-10.4) Neutrophils (%) (Auto) 86.6 % Lymphocytes (%) (Auto) 3.6 % Monocytes (%) (Auto) 8.7 % Eosinophils (%) (Auto) 0.6 % Basophils (%) (Auto) 0.2 % Neutrophils # (Auto) 9.08 K/uL (1.4-6.5) Lymphocytes # (Auto) 0.38 K/uL (1.2-3.4) Monocytes # (Auto) 0.91 K/uL (0.11-0.59) Eosinophils # (Auto) 0.06 K/uL (0-0.5) Basophils # (Auto) 0.02 K/uL (0-0.2) RDW Standard Deviation 46.9 fL (36.4-46.3) RDW Coefficient of Variation 15.1 % (11.5-14.5) Immature Granulocyte % (Auto) 0.3 % Immature Granulocyte # (Auto) 0.03 K/uL (0.00-0.02) Anion Gap 7.0 mmol/L (3-11) Est Creatinine Clear Calc Drug Dose 89.0 ml/min Estimated GFR () 80.2 Estimated GFR (Non- 69.2 BUN/Creatinine Ratio 19.9 (10-20) Calcium Level 9.2 mg/dl (8.5-10.1) Total Bilirubin 0.6 mg/dl (0.2-1) Aspartate Amino Transf (AST/SGOT) 21 U/L (15-37) Alanine Aminotransferase (ALT/SGPT) 26 U/L (12-78) Alkaline Phosphatase 73 U/L (45-117) Total Protein 7.3 gm/dl (6.4-8.2) Albumin 3.7 gm/dl (3.4-5.0) Globulin 3.6 gm/dl (2.5-4.0) Albumin/Globulin Ratio 1.0 (0.9-2) Lipase 138 U/L (73-393) Laboratory results reviewed by me Medications Administered Medications (Trade) Dose Ordered Sig/Yemi Route Start Time Stop Time Status Last Admin Dose Admin Metronidazole (Flagyl Tab) 500 mg NOW STAT PO 12/19/17 22:35 12/19/17 22:37 DC 12/19/17 22:48 500 MG Ciprofloxacin (Cipro Tab) 500 mg NOW STAT PO 12/19/17 22:35 12/19/17 22:37 DC 12/19/17 22:48 500 MG ED Course 2221: The patient was evaluated in room A09B. A complete history and physical exam was performed. Vitals and labs within normal limits. Given the patient's vitals are within normal limits, labs are within normal limits, she is having bowel movements, and her pain feels very much like her other episodes of acute diverticulitis, the chances of there being abscess or obstruction are low. I did discuss this with the patient and explained this to her, I did offer to do CAT scan of the abdomen if she preferred to rule out obstruction or diverticular abscess, however she declined this stating it feels exactly like her previous diverticulitis which was treated with outpatient antibiotics. Patient tolerated p.o. in the emergency department without any difficulties. Discharged with prescription for Cipro and Flagyl. DISCHARGE - Plan of care discussed with patient and questions answered. The patient was given both verbal and printed discharge instructions. The patient verbalized understanding and ability to comply. The patient is to seek outpatient follow up as noted in the discharge instructions. The patient verbalized understanding and ability to comply. The patient is discharged in stable condition. The patient was instructed to return for worsening symptoms. Medical Decision Vitals and labs within normal limits. Given the patient's vitals are within normal limits, labs are within normal limits, she is having bowel movements, and her pain feels very much like her other episodes of acute diverticulitis, the chances of there being abscess or obstruction are low. I did discuss this with the patient and explained this to her, I did offer to do CAT scan of the abdomen if she preferred to rule out obstruction or diverticular abscess, however she declined this stating it feels exactly like her previous diverticulitis which was treated with outpatient antibiotics. Patient tolerated p.o. in the emergency department without any difficulties. Discharged with prescription for Cipro and Flagyl. DISCHARGE - Plan of care discussed with patient and questions answered. The patient was given both verbal and printed discharge instructions. The patient verbalized understanding and ability to comply. The patient is to seek outpatient follow up as noted in the discharge instructions. The patient verbalized understanding and ability to comply. The patient is discharged in stable condition. The patient was instructed to return for worsening symptoms. Medication Reconcilliation Current Medication List: was personally reviewed by me Blood Pressure Screening Patient's blood pressure: Elevated blood pressure Blood pressure disposition: Elevated BP felt to be situational Impression Primary Impression: Diverticulitis Scribe Attestation The scribe's documentation has been prepared under my direction and personally reviewed by me in its entirety. I confirm that the note above accurately reflects all work, treatment, procedures, and medical decision making performed by me. The chart was completed utilizing [employer] Speech voice recognition software. Grammatical errors, random word insertions, pronoun errors, and incomplete sentences are an occasional consequence of this system due to software limitations, ambient noise, and hardware issues. Any formal questions or concerns about the content, text, or information contained within the body of this dictation should be directly addressed to the physician for clarification. Departure Information Dispostion Home / Self-Care Prescriptions Metronidazole (FLAGYL) 500 Mg Tab 500 MG PO TID for 7 Days, #21 TAB Prov: Earl Hemphill M.D. 12/19/17 Ciprofloxacin Hcl (CIPRO) 500 Mg Tab 500 MG PO BID for 7 Days, #14 TAB Prov: Earl Hemphill M.D. 12/19/17 Referrals Richmond Chatterjee D.O. (PCP) Forms Call Back Authorization, HOME CARE DOCUMENTATION FORM, IMPORTANT VISIT INFORMATION Patient Instructions Diverticulitis Robert, My [facility]
[2017-12-19] MEDS ORDERED: METRONIDAZOLE 250 MG TAB PO STA (22:35)
[2017-12-19] MEDS ORDERED: CIPROFLOXACIN 500 MG TAB PO STA (22:35)
[2017-12-19] MEDS ORDERED: CIPR-255 PO (22:43)
[2017-12-19] MEDS ORDERED: METR500T PO (22:43)
[2017-12-19] MEDS ORDERED: POLY335019 PO (22:53)
[2017-12-19 22:57] VITALS: BP 126/101; PULSE 102; O2SAT 96
== END 2017-12-19 22:50 | disposition home or self-care (01) ==
LOC: C.EDB 20:11 → C.EDA 22:50
DX: K57.92 Diverticulitis of intestine, part unspecified, without perforation or abscess without bleeding (principal); Z79.899 Other long term (current) drug therapy; Z91.048 Other nonmedicinal substance allergy status; Z88.5 Allergy status to narcotic agent; Z91.040 Latex allergy status